=== PATIENT | female | born 1960 | race American Indian/Alaskan Native ===

== ENCOUNTER 2017-04-05 05:53 | Day surgery (SDC) | payer OTHER ==
[2017-04-04 16:19] VITALS: BMI 37.7
[2017-04-05 07:26] VITALS: RESP 20
[2017-04-05] MEDS ORDERED: Bacitracin Ointment 30 GM TUBE ONE (07:26)
[2017-04-05] MEDS ORDERED: ceFAZolin IV 1 gm in Dextrose 2 GM/100 ML BAG IVPB ONE (07:26)
[2017-04-05] MEDS ORDERED: Absorbable Gelatin Sponge Size 100 ONE (07:26)
[2017-04-05] MEDS ORDERED: Thrombin Topical 5,000 IU Spray Kit ONE (07:27)
[2017-04-05] MEDS ORDERED: Propofol 10 mg/ml Inj (20 ML) ONE ×2 (07:44→09:01)
[2017-04-05] MEDS ORDERED: Rocuronium 10 mg/ml (5 ml) ONE (07:44)
[2017-04-05] MEDS ORDERED: Midazolam 2 MG/2 ML VIAL ONE (07:44)
[2017-04-05] MEDS ORDERED: Lidocaine 1% 5ml Abboject IV ONE (07:45)
[2017-04-05] MEDS ORDERED: Lactated Ringer's 1,000 ML IV ONE ×3 (07:55→10:56)
[2017-04-05] MEDS ORDERED: Labetalol 5mg/ml (4ml) ONE (08:57)
[2017-04-05] MEDS ORDERED: Desflurane Inhalation Anesthetic Liq (240 ml) ONE (09:09)
[2017-04-05] MEDS ORDERED: Ropivacaine 0.5% 30ML IV ONE (10:54)
[2017-04-05] MEDS ORDERED: Lidocaine 2% Inj (20ml) ONE (10:55)
[2017-04-05] MEDS: HYDROmorphone 0.5 mg/0.5 ml ISec IVP PRN ×4 (11:00→11:24)
[2017-04-05] MEDS ORDERED: HYDROmorphone 0.5 mg/0.5 ml ISec IVP PRN (11:25)
--- NOTE | 2017-04-05 12:45 | CP.PCM.CON ---
History of Present Illness - History of Present Illness History of Present Illness: Anesthesia Procedural Note: HPI: Pt is s/p distal radius fracture right arm. Procedure: Right Axillary Nerve Block Anesthesia was requested for nerve block for patient s/p ORIF right distal radius fracture. Patient was seen and examined at pt. bedside in PACU. Surgeon evaluated neurovascular status of right arm and gave go ahead for nerve block. Pt was consented preoperatively for nerve block. Pt was positioned and draped and prepped with chlorprep. Using ultrasound machine, axillary artery was visualized along with brachial plexus. After skin infiltration with 1% lidocaine and after negative aspiration Ropivicaine 0.5% 20 CC and lidocaine 2% 5 cc was given in incremental boluses and frequent aspirations under ultrasound guidance. Pt tolerated procedure well. Bong Larios Past Patient History - Past Medical History & Family History Past Medical History?: Yes - Past Social History Smoking Status: Smoker Currrent Status Unknown - CARDIAC Hx Cardiac Disorders: No Hx Hypercholesterolemia: Yes Hx Hypertension: Yes - PULMONARY Hx Respiratory Disorders: No - NEUROLOGICAL Hx Neurological Disorder: No - HEENT Hx HEENT Problems: No - RENAL Hx Chronic Kidney Disease: No - ENDOCRINE/METABOLIC Hx Endocrine Disorders: No - HEMATOLOGICAL/ONCOLOGICAL Hx Blood Disorders: Yes Hx AIDS: Yes (Patient reported last CD4 >400) Hx Blood Transfusions: No Hx Human Immunodeficiency Virus (HIV): Yes (99) - INTEGUMENTARY Hx Dermatological Problems: No - MUSCULOSKELETAL/RHEUMATOLOGICAL Hx Musculoskeletal Disorders: Yes Hx Arthritis: Yes (Left knee, right knee ) Hx Falls: No Hx Fractures: Yes (Right wrist and forearm) Hx Rheumatoid Arthritis: Yes - GASTROINTESTINAL Hx Gastrointestinal Disorders: No - GENITOURINARY/GYNECOLOGICAL Hx Genitourinary Disorders: No - PSYCHIATRIC Hx Emotional Abuse: No Hx Physical Abuse: No - SURGICAL HISTORY Hx Surgeries: Yes Hx Appendectomy: Yes Hx Hysterectomy: Yes Hx Joint Replacement: Yes (BILATERAL KNEE) Other/Comment: HEMORRHOIDECTOMY - ANESTHESIA Hx Anesthesia: Yes Hx Anesthesia Reactions: No Hx Malignant Hyperthermia: No Has any member of the family had a problem w/ anesthesia?: No Meds Allergies/Adverse Reactions: Allergies Allergy/AdvReac Type Severity Reaction Status Date / Time gentamicin [Gentamicin] Allergy SWELLING Verified 04/04/17 16:19 levofloxacin [From Levaquin] Allergy SWELLING Verified 04/04/17 16:19 tomato Allergy RASH Verified 11/14/17 16:19 - Medications Medications: Current Medications Ondansetron HCl (Zofran Inj) 4 mg IVP ONCE PRN PRN Reason: Nausea/Vomiting Stop: 04/05/17 12:48 Results - Vital Signs Recent Vital Signs: Last Vital Signs Temp 99.1 F 04/05/17 07:23 Pulse 65 04/05/17 07:26 Resp 20 04/05/17 07:23 BP 138/84 04/05/17 07:23 Pulse Ox 99 04/05/17 07:23
[2017-04-05 14:06] VITALS: BP 115/89; PULSE 80; TEMP 99
[2017-04-05 14:11] VITALS: O2SAT 98
--- NOTE | 2017-04-05 14:21 | RAD ---
PROCEDURE: Right Wrist Radiographs. HISTORY: S/P ORIF distal radius Fx COMPARISON: None. FINDINGS: BONES: There is internal fixation of the right distal radius with a plate and multiple screws. There is anatomic alignment with no angulation JOINTS: Normal. No dislocation. SOFT TISSUES: Normal. OTHER FINDINGS: None. IMPRESSION: There is internal fixation of the right distal radius with a plate and multiple screws. There is anatomic alignment with no angulation
--- NOTE | 2017-04-05 17:27 | RAD ---
PROCEDURE: Fluoroscopy over 1 hour HISTORY: Open reduction internal fixation distal radial fracture COMPARISON: None TECHNIQUE: Standard protocol for this study/examination. FINDINGS: Total fluoroscopic time (continuous mode) utilized during the procedure: 8.8 seconds. IMPRESSION: Submitted images from the current procedure: 7.0
--- NOTE | 2017-04-06 09:53 | PCM.SURG1 ---
Surgeon's Initial Post Op Note - Surgeon's Notes Surgeon: Chapis Barrel Scraper: JUANCHO Mercado Type of Anesthesia: General Endo Anesthesia Administered By: DR Larios Pre-Operative Diagnosis: Displaced/comminuted distal radius fx. R/O post traumatic carpal tunnel syndrome Operative Findings: as above Post-Operative Diagnosis: as above Operation Performed: ORIF displaced distal radius fx. release transverse carpal ligament. partial median neurolysis. partial flexor tenosynovectomy. applx short arm volar splint Specimen/Specimens Removed: fx callous/epineurium/tenosynovium Estimated Blood Loss: EBL {In ML}: 10 Blood Products Given: N/A Drains Used: No Drains Post-Op Condition: Good Date of Surgery/Procedure: 04/05/17 Time of Surgery/Procedure: 08:55 (time in room 7:55)
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
== END 2017-04-05 14:05 | disposition home or self-care (01) ==
LOC: H.OPSURG 05:53
PROVIDERS: ATTEND Orthopaedic Surgery
DX: S52.201A Unspecified fracture of shaft of right ulna, initial encounter for closed fracture (principal); X58.XXXA Exposure to other specified factors, initial encounter; M06.9 Rheumatoid arthritis, unspecified; E78.00 Pure hypercholesterolemia, unspecified; Z21 Asymptomatic human immunodeficiency virus [HIV] infection status; K21.9 Gastro-esophageal reflux disease without esophagitis; G47.33 Obstructive sleep apnea (adult) (pediatric); E66.9 Obesity, unspecified; I10 Essential (primary) hypertension; G56.00 Carpal tunnel syndrome, unspecified upper limb
CPT/HCPCS: 25607; 64721; 73110; C1713; J0360; J0690; J1170; J1885; J2250; J2704; J3010; J7030; J7120